=== PATIENT | female | born 1975 | race Caucasian/White ===

== ENCOUNTER → 2017-11-23 | Outpatient (CLI) | payer BC ==
--- NOTE | 2017-11-23 11:54 | KCIC ---
AP and Lateral Views of the Chest 11/23/2017 12:00 AM Indication: Cough Comparison: None available Findings: There is no focal consolidation or infiltrate identified. The cardiomediastinal silhouette is within normal limits. There is no evidence of pneumothorax or pleural effusion. No acute osseous abnormalities are identified. Impression: No evidence of acute cardiopulmonary process. Electronically signed by: Vitaliy Al MD (11/23/2017 11:50 AM) [id number]
== END | disposition home or self-care (01) ==
LOC: KCIC 10:30
PROVIDERS: ATTEND Nurse Practitioner Family
DX: R05 Cough (principal)
CPT/HCPCS: 71046

== ENCOUNTER → 2020-01-12 | Outpatient (CLI) | payer BC ==
[~2020-01-12] MED LIST: ALBU2.5V8 IH; IOHEXOL 240 MG/ML 50ML VIAL. PO ONE
--- NOTE | 2020-01-12 10:51 | KCIC ---
EXAM: CT Abdomen and Pelvis without IV contrast CLINICAL HISTORY: Reason: Left lower quandrant pain, worsening. / Spl. Instructions: call report [phone] / History: Past hx Lt inguinal hernia repair as child. COMPARISON: none TECHNIQUE: Helical CT of the abdomen and pelvis was performed without the administration of IV contrast. Axial, coronal and sagittal reformatted images were generated. ---PQRS compliance statement - One or more of the following individualized dose reduction techniques were utilized for this study: 1. Automated exposure control 2. Adjustment of the mA and/or kV according to patient size 3. Use of iterative reconstruction technique--- FINDINGS: Lack of intravenous contrast limits evaluation of solid organs, vasculature, and lymph nodes. Lower chest: Clear Abdomen and pelvis: Liver and biliary system: Hepatic hypoattenuation may be seen with fatty liver. No definite liver lesion is seen within the constraints of this noncontrast examination although region of focal fatty sparing along the gallbladder fossa. High density material within the gallbladder likely sludge. No biliary ductal dilatation. Spleen: Unremarkable Pancreas: Unremarkable Adrenal glands: Unremarkable Kidneys: Nonobstructing left lower pole renal calculus. No right renal calculus. No ureteral or bladder calculi. No hydronephrosis or hydroureter. Right upper pole renal cyst is seen. Lymph nodes/retroperitoneum: No abdominal or pelvic lymphadenopathy. Vessels: Aorta is normal in caliber. Bowel/Peritoneal cavity: Changes of acute diverticulitis are seen within the sigmoid colon with marked pericolonic infiltration. No discrete loculated fluid collection is seen. No abdominal or pelvic ascites. No bowel obstruction. Appendix is normal. Mild endometrial distention of the uterus can be correlated with phase of menstrual cycle. Abdominal wall: Fat-containing periumbilical hernia. Bladder: Grossly unremarkable Bones: No aggressive osseous lesion is seen. Degenerative changes of the spine are noted. SI joint degenerative changes are seen. IMPRESSION: 1. Acute sigmoid diverticulitis without discrete loculated fluid collection or free intraperitoneal gas. Of note, underlying mass is not excluded, following resolution of the acute process, recommend further evaluation with colonoscopy if not previously performed. 2. Hepatic hypoattenuation, likely fatty liver. 3. Nonobstructing left lower pole renal calculus. Findings discussed with ordering provider's Javascript Front End Developer [employer] at 01/12/2020 10:45 AM. FOR INTERNAL CODING PURPOSES RESULT CODE: (C) Electronically signed by: Edison Bell MD (01/12/2020 10:48 AM) [facility]
== END ==
LOC: KCIC CT 09:27
PROVIDERS: ATTEND Family Medicine
DX: K42.9 Umbilical hernia without obstruction or gangrene (principal); K57.32 Diverticulitis of large intestine without perforation or abscess without bleeding; N20.0 Calculus of kidney; N28.1 Cyst of kidney, acquired
CPT/HCPCS: 74176; Q9966